=== PATIENT | female | born 2000 | race Asian ===

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

== ENCOUNTER → 2022-07-08 | Outpatient (CLI) | payer BC ==
--- NOTE | 2022-07-08 13:55 | Diagnostic Imaging Report ---
PROCEDURE: US Thyroid. TECHNIQUE: Multiple real-time grayscale images were obtained of the thyroid in various projections. INDICATION: Thyroid disorder COMPARISON: None. FINDINGS: Both thyroid lobes demonstrate smooth and homogenous echotexture. There are no focal lesions seen. Color flow Doppler demonstrates normal and symmetric vascularity, bilaterally. The right lobe measures 5.1 x 1.3 x 1.6 cm, the left lobe measures 4.5 x 1.1 x 1.3 cm. The isthmus measures 3 mm. IMPRESSION: Unremarkable thyroid sonogram. Dictated by: Dictated on workstation # [id number]
== END ==
LOC: RAD 12:22
PROVIDERS: ATTEND Nurse Practitioner Family
DX: E07.9 Disorder of thyroid, unspecified (principal); R55 Syncope and collapse; R00.2 Palpitations
CPT/HCPCS: 76536; 93005; 93225; 93226

== ENCOUNTER → 2022-10-06 | Outpatient (CLI) | payer OTHER ==
[2022-10-06 08:17] VITALS: BP 121/66
--- NOTE | 2022-10-06 15:25 | Cardiology Stress Test Report ---
Stress Test Report Date of Procedure/Referring: Date of Procedure: October 06, 2022 PCP Dora Mitchell DO Admitting Physician Admitting Physician: Attending Physician: Anay Hernandez MD Baseline Heart Rate: 68 Baseline Blood Pressure: Blood Pressure Systolic: 121 Blood Pressure Diastolic: 66 Baseline EKG: Baseline EKG: NSR Summary/Conclusion: Summary: In summary, the patient started exercising with a baseline heart rate, blood pressure and EKG mentioned above Patient was able to exercise for a total of 10 minutes on Niall protocol, METs 11.7 Maximum heart rate 180 Maximum blood pressure 170/50 Stress EKG, Minimal nondiagnostic changes Recovery EKG , Return to baseline Conclusion: 1. Good exercise tolerance for a total of 10 minutes on Niall protocol, 11.7 METs, achieving 91 percent of maximum expected heart rate 2. Minimal nondiagnostic EKG changes with exercise returned to baseline during recovery 3. No arrhythmia was noted Copy Copies To 1: DORA MITCHELL BASHAR J MD October 06, 2022 15:25
== END ==
LOC: CARD 07:16
PROVIDERS: ATTEND Internal Medicine Cardiovascular Disease
DX: I10 Essential (primary) hypertension (principal); I25.10 Atherosclerotic heart disease of native coronary artery without angina pectoris
CPT/HCPCS: 93306